=== PATIENT | male | born 1990 | race Two or more races ===

== ENCOUNTER 2024-11-09 20:16 | Emergency (ER) | payer OTHER ==
[~2024-11-09] VITALS: Ht 152.4 cm; Wt 97.5 kg
[~2024-11-09 20:16] MED LIST: CEFTIN500 MG PO
[2024-11-09] MEDS ORDERED: HYOSCYAMINE SULFATE 0.125 MG TAB.SUBL SL ONE (21:45)
[2024-11-09] MEDS ORDERED: 0.9 % SODIUM CHLORIDE 1,000 ML IV STA (22:06)
[2024-11-09 23:15] LABS: BASO % 0.4 % (0.1-1.2); EOS # 0.06 (0.04-0.54); EOS % 0.7 % (0.7-7.0); LYMPH # 1.95 (1.18-3.74); LYMPH % 23.6 % (19.3-53.1); MEAN PLATELET VOLUME 9.70 fl (9.4-12.4); MONO # 0.74 (0.24-0.82); MONO % 9.0 % (4.7-12.5); NEUT # 5.46 (1.56-6.13); NEUT % 66.2 % (34.0-71.1); RED CELL DISTRIBUTION WIDTH 12.4 % (11.6-14.4)
[2024-11-09 23:36] LABS: INR 0.98
[2024-11-09 23:42] LABS: BUN CREA RATIO 10.0 (7.0-25.0); CREATININE SERUM 1.25 mg/dL (0.70-1.30); GFR 65.35; GLUCOSE FASTING 87.0 mg/dL (65-100); OSMOLALITY SERUM 277.0 MOSM/KG (275-295)
[2024-11-10 02:24] LABS: URINE APPEARANCE CLEAR; URINE BILIRRUBIN NEGATIVE (NEGATIVE); URINE BLOOD NEGATIVE; URINE COLOR YELLOW; URINE GLUCOSE NEGATIVE (NEGATIVE); URINE KETONE NEGATIVE (NEGATIVE); URINE LEUKOCYTE NEGATIVE; URINE NITRATE NEGATIVE; URINE PROTEIN NEGATIVE (NEGATIVE); URINE RBC 0.1 uL (0.0-20.8); URINE UROBILINOGEN 0.2 E.U./dl; URINE WBC 0.7 uL (0.0-23.2)
[2024-11-10 02:25] LABS: URINE BACTERIA 1.1 uL (0.0-1933); URINE CAST 0.00 uL (0.0-1.40); URINE EPITHELIAL CELLS 0.4 uL (0.0-38.8)
[2024-11-10] MEDS ORDERED: KETOROLAC TROMETHAMINE 30 MG VIAL IV STA (02:35)
[2024-11-10] MEDS ORDERED: KETO10TA2 PO (03:45)
== END 2024-11-10 06:14 ==
LOC: ER 20:16
PROVIDERS: General Practice
DX: K63.89 Other specified diseases of intestine (principal); R10.9 Unspecified abdominal pain; K59.00 Constipation, unspecified; Z91.013 Allergy to seafood